=== PATIENT | female | born 1990 | race Caucasian/White ===

== ENCOUNTER 2017-01-28 03:43 | Emergency (ER) | payer OTHER ==
[~2017-01-28] VITALS: Ht 172.7 cm; Wt 96.3 kg
[~2017-01-28 03:43] MED LIST: ACET-1600 PO; BUPR-86 PO; DOCU-131 PO; IBUP-1223 PO; OXYC-302 PO; PREN1TAB60 PO; RANI75TA12 PO
[2017-01-28] MEDS ORDERED: PHEN37.590 PO (04:02)
[2017-01-28] MEDS ORDERED: BUPR300T49 PO (04:02)
[2017-01-28] MEDS ORDERED: LIDOCAINE 1%, 20ML ONE (04:41)
[2017-01-28 04:57] VITALS: BP 140/94
== END 2017-01-28 05:36 | disposition home or self-care (01) ==
LOC: ED 04:50
DX: K64.4 Residual hemorrhoidal skin tags (principal); Z88.5 Allergy status to narcotic agent
CPT/HCPCS: 99283

== ENCOUNTER 2019-06-17 09:10 | Emergency (ER) | payer OTHER ==
[~2019-06-17] VITALS: Ht 172.7 cm; Wt 95.0 kg
[~2019-06-17 09:10] MED LIST changes: +BUPR300T49 PO; +PHEN37.590 PO; +RANI-244 PO; -RANI75TA12 PO
[2019-06-17] MEDS ORDERED: ONDANSETRON 2MG/ML, 2ML IVPush ONE (09:30)
[2019-06-17] MEDS ORDERED: SODIUM CHLORIDE 0.9% 1,000ML IVBOLUS ONE (09:30)
[2019-06-17] MEDS ORDERED: FAMOTIDINE 20 MG/2 ML IVPush ONE (09:30)
[2019-06-17] MEDS ORDERED: SODIUM CHLORIDE FLUSH 10ML SYR IVF ONE (09:30)
[2019-06-17] MEDS ORDERED: ONDANSETRON 2MG/ML, 2ML ONE (09:38)
[2019-06-17] MEDS ORDERED: FAMOTIDINE 20 MG/2 ML ONE (09:38)
[2019-06-17 10:28] LABS: BASOPHILS # (AUTO) 0.01 x10^3/uL (0-0.1); BASOPHILS % (AUTO) 0 % (0-1); EOSINOPHILS # (AUTO) 0.01 x10^3/uL (0-0.4); EOSINOPHILS % (AUTO) 0 % (1-7); LYMPHOCYTES # (AUTO) 1.03 x10^3/uL (1-3.4); LYMPHOCYTES % (AUTO) 16 % (22-44); MD NO; MEAN CORPUSCULAR HEMOGLOBIN 29.5 pg (27.0-34.8); MEAN CORPUSCULAR HGB CONC 33.7 g/dL (32.4-35.8); MEAN CORPUSCULAR VOLUME 87.7 fL (80-100); MEAN PLATELET VOLUME 8.2 fL (7.4-10.4); MONOCYTES % (AUTO) 6 % (2-9); NEUTROPHILS # (AUTO) 4.85 x10^3/uL (1.8-6.8); NEUTROPHILS % (AUTO) 77 % (42-75); PLATELET COUNT 279 x10^3/uL (130-400); RED BLOOD COUNT 5.21 x10^6/uL (3.82-5.3); RED CELL DISTRIBUTION WIDTH 12.9 % (9.6-15.2)
[2019-06-17 10:36] LABS: ALANINE AMINOTRANSFERASE 19 U/L (12-78); ALBUMIN 3.9 g/dL (3.4-5.0); ANION GAP 7 mmol/L (5-15); CALCIUM 8.8 mg/dL (8.5-10.1); CHLORIDE 110 mmol/L (98-107); CREATININE 0.91 mg/dL (0.55-1.02)
[2019-06-17 10:39] LABS: MICROSCOPIC AUTO
[2019-06-17 10:41] LABS: ALKALINE PHOSPHATASE 83 U/L (45-117); BILIRUBIN,TOTAL 0.4 mg/dL (0.2-1.0); TOTAL PROTEIN 7.6 g/dL (6.4-8.2)
[2019-06-17 10:46] LABS: CULTURE INDICATED? YES
[2019-06-17 11:40] VITALS: BP 117/71
== END 2019-06-17 11:43 | disposition home or self-care (01) ==
LOC: ED 11:31
DX: N30.01 Acute cystitis with hematuria (principal); R11.2 Nausea with vomiting, unspecified; R55 Syncope and collapse; Z90.89 Acquired absence of other organs
CPT/HCPCS: 36415; 74022; 80053; 81001; 83690; 84703; 85025; 87086; 93005; 96361; 96374; 96375; 99284; J2405; J3490; J7030